=== PATIENT | female | born 1990 | race Caucasian/White ===

== ENCOUNTER → 2017-01-03 | Outpatient (CLI) | payer SELFPAY ==
[2017-01-03 15:07] LABS: BASOPHILS # (AUTO) 0.03 10*3/UL; BASOPHILS % (AUTO) 0.4 % (0-1); EOSINOPHILS # (AUTO) 0.22 10*3/UL; EOSINOPHILS % (AUTO) 3.1 % (0-8); HEMATOCRIT 38.2 % (37.0-47.0); HEMOGLOBIN 12.8 g/dL (12.0-16.0); LYMPHOCYTES # (AUTO) 1.49 10*3/uL; MEAN CORPUSCULAR HEMOGLOBIN 28.3 PG (27-31); MEAN CORPUSCULAR HGB CONC 33.5 g/dL (33-37); MEAN CORPUSCULAR VOLUME 84.3 FL (81-99); MEAN PLATELET VOLUME 10.4 FL (7.4-12.2); MONOCYTES # (AUTO) 0.39 10*3/UL (0.3-0.8); MONOCYTES % (AUTO) 5.6 % (5-15); NEUTROPHILS # (AUTO) 4.84 10*3/UL; NEUTROPHILS % (AUTO) 69.3 % (50-80); RED BLOOD COUNT 4.53 10^6/uL (4.20-5.40)
[2017-01-03 15:08] LABS: PLATELET MORPHOLOGY COMMENT NORMAL MORPHOLOGY (NORM); RBC MORPHOLOGY COMMENT NORMAL MORPHOLOGY (NORM); WBC MORPHOLOGY COMMENT NORMAL MORPHOLOGY (NORM)
[2017-01-03 16:03] LABS: BLOOD UREA NITROGEN 10 mg/dL (7-22); BUN/CREATININE RATIO 16.66 (6-20); CALCIUM 8.9 mg/dL (8.7-10.7); EST GLOMERULAR FILTRATION > 60 (>60 ml/min/1.73m(2)); SERUM ALBUMIN 3.9 g/dL (3.5-4.8)
[2017-01-03 16:07] LABS: HIV ANTIBODY NEGATIVE (N); HIV-1 P24 ANTIGEN NEGATIVE (N)
== END ==
LOC: MOB LAB 13:31
PROVIDERS: ATTEND Obstetrics & Gynecology
DX: Z36 Encounter for antenatal screening of mother (principal)
CPT/HCPCS: 36415; 80053; 80081; 86900; 86901; 87088; 87491; 87591

== ENCOUNTER → 2017-01-08 | Outpatient (CLI) | payer SELFPAY ==
[2017-01-08 14:07] LABS: 24 HOUR URINE TOTAL VOLUME 2500 ML
[2017-01-08 14:18] LABS: Total Volume, Urine 2500 ML
[2017-01-08 15:01] LABS: CREATININE,URINE 93.3
[2017-01-08 15:02] LABS: COLLECTION TIME,URINE 24 HOURS
[2017-01-08 16:13] LABS: EST GLOMERULAR FILTRATION > 60 (>60 ml/min/1.73m(2))
[2017-01-09 15:44] LABS: DRVVT SCREEN RATIO 1.4
[2017-01-09 15:46] LABS: THROMBIN TIME 17
[2017-01-09 15:48] LABS: FIBRIONGEN EQUIVALENT UNITS 2.38
[2017-01-09 15:49] LABS: SOLUBLE FIBRIN MONOMER <8
[2017-01-09 15:51] LABS: PROTEIN C ACTIVITY 112
[2017-01-09 15:52] LABS: PROTEIN S ANTIGEN 75
== END ==
LOC: LAB 11:48
PROVIDERS: ATTEND Obstetrics & Gynecology
DX: Z36 Encounter for antenatal screening of mother (principal); O09.291 Supervision of pregnancy with other poor reproductive or obstetric history, first trimester
CPT/HCPCS: 36415; 81240; 82575; 84156; 85300; 85303; 85306; 85307; 85366; 85379; 85384; 85390; 85610; 85613; 85670; 85730

== ENCOUNTER → 2017-01-10 | Outpatient (CLI) | payer SELFPAY ==
--- NOTE | 2017-01-10 23:47 | DI ---
US OB TRANSVAGINAL,01/10/2017 1:50 PM: Clinical History: Missed . Previous Exam: None at this facility. Findings: Multiple transvaginal grayscale and color Doppler sonographic images are obtained through the pelvis demonstrating a single gestational sac with pole measuring 12 mm from crown to rump and corresp onding with an estimated gestational age of 7 weeks 3 days. There were no detectable Doppler heart tones. Mean sac diameter measured 1.8 cm lung with an estimated gestational age of 6 weeks 5 days. Impression: 1. pole measuring almost 3 weeks less than dates with no detectable Doppler heart tones. This i s most consistent with spontaneous demise.
== END ==
LOC: US 13:47
PROVIDERS: ATTEND Obstetrics & Gynecology
DX: O02.1 Missed abortion (principal)
CPT/HCPCS: 76817